=== PATIENT | female | born 1980 | race African-American/Black ===

== ENCOUNTER 2024-03-16 16:42 | Emergency (ER) | payer MEDICAID ==
[~2024-03-16] VITALS: Ht 154.9 cm; Wt 96.3 kg
[2024-03-16 17:17] VITALS: BP 120/86; PULSE 95; RESP 16; TEMP 98.2; O2SAT 100
[2024-03-16] MEDS: KETOROLAC TROMETH 60MG/2ML VIAL IM ONE (17:19)
[2024-03-16] MEDS ORDERED: METH-1182 PO (18:03)
[2024-03-16] MEDS ORDERED: IBUP-1456 PO (18:03)
== END 2024-03-16 18:04 | disposition home or self-care (01) ==
LOC: ER 16:42
DX: M23.92 Unspecified internal derangement of left knee (principal)
CPT/HCPCS: 73562; 96372; 99283; J1885